=== PATIENT | female | born 1985 | race American Indian/Alaskan Native ===

== ENCOUNTER 2017-06-01 15:34 | Emergency (ER) | payer OTHER ==
[2017-06-01] MEDS ORDERED: TORADOL IM ONE (21:16)
[2017-06-01 21:42] LABS: Basophils # (Auto) 0.1 K/mm3 (0.0-0.1); Basophils % (Auto) 0.4 % (0.0-1.8); Eosinophils # (Auto) 0.1 K/mm3 (0.0-0.4); Eosinophils % (Auto) 0.5 % (0.0-4.3); Hematocrit 41.2 % (30.3-42.9); Lymphocytes # (Auto) 1.9 K/mm3 (1.2-5.4); Lymphocytes % (Auto) 11.2 % (13.4-35.0); Mean Corpuscular HGB Conc 34 % (30-34); Mean Corpuscular Hemoglobin 38 pg (28-32); Mean Corpuscular Volume 113 fl (79-97); Monocytes # (Auto) 0.9 K/mm3 (0.0-0.8); Monocytes % (Auto) 5.7 % (0.0-7.3); Platelet Count 193 K/mm3 (140-440); Red Blood Count 3.65 M/mm3 (3.65-5.03); Red Cell Distribution Width 12.6 % (13.2-15.2)
[2017-06-01 21:47] LABS: Bilirubin,Urine NEG (Negative); Blood,Urine SM (Negative); Color,Urine Amber (Yellow); Nitrite,Urine POS (Negative); Protein,Urine <15 mg/dL mg/dL (Negative); WBC,Urine < 1.0 /HPF (0.0-6.0)
[2017-06-01 22:06] LABS: Alanine Aminotransferase 10 units/L (7-56); Albumin 4.1 g/dL (3.9-5); BUN/Creatinine Ratio 7; Blood Urea Nitrogen 5 mg/dL (7-17); Calcium 8.8 mg/dL (8.4-10.2); Hemolysis Index 11; Lipase 17 units/L (13-60)
[2017-06-02 03:36] VITALS: BP 146/85
== END 2017-06-02 05:01 | disposition left against medical advice (07) ==
LOC: ED 15:34
DX: R10.9 Unspecified abdominal pain (principal); Z53.21 Procedure and treatment not carried out due to patient leaving prior to being seen by health care provider
CPT/HCPCS: 36415; 80053; 81001; 83690; 84703; 85025; 96372; J1885

== ENCOUNTER 2018-05-27 18:19 | Inpatient (IN) | payer BC, OTHER ==
[2018-05-27 18:52] LABS: Basophils % (Auto) 0.3 % (0.0-1.8); Eosinophils # (Auto) 0.1 K/mm3 (0.0-0.4); Hematocrit 36.8 % (30.3-42.9); Hemoglobin 12.7 gm/dl (10.1-14.3); Lymphocytes # (Auto) 2.1 K/mm3 (1.2-5.4); Lymphocytes % (Auto) 17.8 % (13.4-35.0); Mean Corpuscular HGB Conc 35 % (30-34); Mean Corpuscular Volume 116 fl (79-97); Monocytes # (Auto) 0.8 K/mm3 (0.0-0.8); Monocytes % (Auto) 6.6 % (0.0-7.3); Platelet Count 178 K/mm3 (140-440); Red Blood Count 3.16 M/mm3 (3.65-5.03); Red Cell Distribution Width 12.5 % (13.2-15.2)
[2018-05-27 19:00] LABS: Bacteria,Urine 4+ /HPF (Negative); Bilirubin,Urine NEG (Negative); Blood,Urine LG (Negative); Color,Urine Red (Yellow); Mucus,Urine 3+ /HPF; Urobilinogen,Urine < 2.0 mg/dL (<2.0)
--- NOTE | 2018-05-27 19:55 | Emergency Department Report ---
ED HPI - General Chief complaint: Vaginal Bleeding Stated complaint: 4WKS /BLEEDING/STOMACH PAIN Time Seen by Provider: 05/27/18 19:16 Source: patient Mode of arrival: Ambulatory Limitations: No Limitations - History of Present Illness Initial comments: Patient is a 32-year-old emergency room female G3,P1, A1 who presents for vaginal bleeding 1 week bleeding is light using 2 pads daily brownish red abdominal cramping symptoms symptoms are persistent patient has MANAGER DATA follow-up in 1 week if no fevers no chills no nausea and vomiting she started to pass clots today passing to today patient denies vaginal discharge prior to symptoms patient states no concern for std there is no nausea vomiting , symptoms rated at 4/10 relieved by nothing, exacerbated by movement. MD Complaint: abdominal pain (cramping ), vaginal bleeding Onset/Timin -: week(s) Location: abdomen Radiation: suprapubic Severity: moderate Severity scale (0 -10): 4 Quality: cramping Consistency: constant Improves with: none Worsens with: movement Associated symptoms: vaginal bleeding, abdominal pain Vaginal bleeding: light :: Yes Number of weeks : 4 OB History - Current : no complications OB History - Previous Pregnancies: no complications Last menstrual period: 04/22/18 Pre- care: followed by OB - Related Data : 3 Para: 1 Ab: 1 Previous Rx's Medication Instructions Recorded Last Taken Type traMADol [Ultram] 50 mg PO Q6HR PRN #20 tablet 02/20/16 Unknown Rx Allergies Allergy/AdvReac Type Severity Reaction Status Date / Time No Known Allergies Allergy Verified 05/27/18 18:25 ED Review of Systems ROS: Stated complaint: 4WKS /BLEEDING/STOMACH PAIN Other details as noted in HPI Constitutional: denies: chills, fever Eyes: denies: eye pain, eye discharge, vision change ENT: denies: ear pain, throat pain Respiratory: denies: cough, shortness of breath, wheezing Cardiovascular: denies: chest pain, palpitations Endocrine: no symptoms reported Gastrointestinal: abdominal pain. denies: nausea, vomiting, diarrhea, constipation Genitourinary: other (vaginal bleeding ). denies: urgency, dysuria, frequency, hematuria, discharge, abnormal menses, dyspareunia Musculoskeletal: denies: back pain, joint swelling, arthralgia Skin: denies: rash, lesions Neurological: denies: headache, weakness, paresthesias Psychiatric: denies: anxiety, depression Hematological/Lymphatic: denies: easy bleeding, easy bruising ED Past Medical Hx - Past Medical History Previous Medical History?: No - Surgical History Past Surgical History?: No - Social History Smoking Status: Former Smoker Substance Use Type: None - Medications Home Medications: Home Medications Medication Instructions Recorded Confirmed Last Taken Type traMADol [Ultram] 50 mg PO Q6HR PRN #20 tablet 02/20/16 Unknown Rx ED Physical Exam - General Limitations: No Limitations General appearance: alert, in no apparent distress - Head Head exam: Present: atraumatic, normocephalic - Eye Eye exam: Present: normal appearance - ENT ENT exam: Present: mucous membranes moist - Neck Neck exam: Present: normal inspection - Respiratory Respiratory exam: Present: normal lung sounds bilaterally. Absent: respiratory distress - Cardiovascular Cardiovascular Exam: Present: regular rate, normal rhythm. Absent: systolic murmur, diastolic murmur, rubs, gallop - GI/Abdominal GI/Abdominal exam: Present: soft, tenderness (mild superpubic tenderness to deep palpation ), normal bowel sounds. Absent: distended, guarding, rebound, bruit, hernia - Rectal Rectal exam: Present: deferred - External exam: Present: other (defered per patient ) - Extremities Exam Extremities exam: Present: normal inspection - Back Exam Back exam: Present: normal inspection, full ROM. Absent: tenderness, CVA tenderness (R), CVA tenderness (L), muscle spasm, rash noted - Neurological Exam Neurological exam: Present: alert, oriented X3 - Psychiatric Psychiatric exam: Present: normal affect, normal mood - Skin Skin exam: Present: warm, dry, intact, normal color. Absent: rash ED Course Vital Signs 05/27/18 05/28/18 18:25 00:16 Temperature 97.4 F L 97.9 F Pulse Rate 80 129 H Respiratory 18 18 Rate Blood Pressure 143/82 Blood Pressure 135/78 [Left] O2 Sat by Pulse 100 100 Oximetry ED Medical Decision Making - Lab Data Result diagrams: 05/27/18 18:37 Labs 05/27/18 05/27/18 05/27/18 18:37 18:37 18:37 WBC 12.1 H RBC 3.16 L Hgb 12.7 Hct 36.8 MCV 116 H MCH 40 H MCHC 35 H RDW 12.5 L Plt Count 178 Lymph % (Auto) 17.8 [place] % (Auto) 6.6 Eos % (Auto) 1.0 Baso % (Auto) 0.3 Lymph # 2.1 [place] # 0.8 Eos # 0.1 Baso # 0.0 Seg Neutrophils % 74.3 H Seg Neutrophils # 9.0 H HCG, Quant 44329 H Urine Color Urine Turbidity Urine pH Ur Specific [place] Urine Protein Urine Glucose (UA) Urine Ketones Urine Blood Urine Nitrite Urine Bilirubin Urine Urobilinogen Ur Leukocyte Esterase Urine WBC (Auto) Urine RBC (Auto) U Epithel Cells (Auto) Urine Bacteria (Auto) Urine Mucus Blood Type A NEGATIVE Antibody Screen Negative 05/27/18 18:41 WBC RBC Hgb Hct MCV MCH MCHC RDW Plt Count Lymph % (Auto) [place] % (Auto) Eos % (Auto) Baso % (Auto) Lymph # [place] # Eos # Baso # Seg Neutrophils % Seg Neutrophils # HCG, Quant Urine Color Red Urine Turbidity Slightly-cloudy Urine pH 6.0 Ur Specific [place] 1.021 Urine Protein 100 mg/dl Urine Glucose (UA) 50 Urine Ketones 20 Urine Blood Lg Urine Nitrite Neg Urine Bilirubin Neg Urine Urobilinogen < 2.0 Ur Leukocyte Esterase Neg Urine WBC (Auto) 88.0 H Urine RBC (Auto) 156.0 U Epithel Cells (Auto) 67.0 H Urine Bacteria (Auto) 4+ Urine Mucus 3+ Blood Type Antibody Screen - Radiology Data Radiology results: report reviewed, image reviewed FINAL REPORT PROCEDURE: Transvaginal obstetrical ultrasound. TECHNIQUE: Real-time transvaginal sonography of the uterus, placenta, amniotic fluid, adnexa, and fetus was performed with image documentation. Measurements were obtained to determine age/size. M-mode Doppler was used to document heartbeat. CPT 57912 HISTORY: Vaginal bleeding, 4 weeks . COMPARISON: No prior studies are available for comparison. FINDINGS: The uterus appears normal in size and has uniform echogenicity. The endometrial echo complex appears thin and uniform. There is a right sided adnexal mass measuring approximately 5.2 centimeters x 4.7 centimeters in cross-section. This has a central fluid collection surrounded by increased echogenicity. The appearance is very similar to a gestational sac. I do not see a yolk sac or pole. The findings are worrisome for an ectopic . There is some echogenic free fluid in the cul-de-sac. This could represent hemorrhage. Neither ovary is definitely identified. IMPRESSION: Probable right sided ectopic . Possible hemorrhage in the cul-de-sac. Transcribed By: MRM Dictated By: SAMUEL CARLSON MD Electronically Authenticated By: SAMUEL CARLSON MD Signed Date/Time: 05/27/18 2242 - Medical Decision Making 2229: Consulted OBGYN Dr. Go for dx Ectopic advises will see patient at bedside for evaluation and treatment. US: right ectopic , abo negative, pt denies rhogam in 1st two pregnancies, abd pain is 4/10 at this time, improved per patient, discussed tx plan including ,Dx of Ectopic , surgical intervention and admission pt verbalized agreement and understanding of treatment plan. 0012: pt to PACU for Dx Ectopic , Admitting Dr. Go, pt condtion currently stable with nad, pt to or via [facility]HAELA armenta, in possession of all personal belongings. Critical care attestation.: If time is entered above; I have spent that time in minutes in the direct care of this critically ill patient, excluding procedure time. ED Disposition Clinical Impression: Ectopic Qualifiers: Location of ectopic : tubal Intrauterine status: without intrauterine Laterality: right Qualified Code(s): O00.101 - Right tubal without intrauterine Disposition: OP ADMIT IP TO THIS HOSP Is pt being admited?: Yes Does the pt Need Aspirin: No Condition: Stable Instructions: Ectopic (ED) Referrals: FRANTZ GO MD [Staff Physician] - 3-5 Days Time of Disposition: 00:16
[2018-05-27] MEDS ORDERED: XYLOCAINE 1% MPF 5 mL INFILTRATI ONE (19:56)
[2018-05-27] MEDS ORDERED: ROCEPHIN IM ONE (19:56)
[2018-05-27] MEDS ORDERED: TYLENOL PO ONE ×2 (19:56→23:46)
[2018-05-27] MEDS ORDERED: ZOFRAN ODT PO ONE (20:19)
[2018-05-27] MEDS ORDERED: ZOFRAN ODT ONE (20:21)
[2018-05-27] MEDS ORDERED: NACL 0.9% 1000 ML 1,000 ML IV ONE (22:23)
--- NOTE | 2018-05-27 22:37 | Ultrasound Report ---
FINAL REPORT PROCEDURE: Transabdominal obstetrical ultrasound. TECHNIQUE: Real-time transabdominal sonography of the uterus, placenta, amniotic fluid, adnexa, and fetus was performed with image documentation. Measurements were obtained to determine age/size. M-mode Doppler was used to document heartbeat. CPT 44630 HISTORY: Vaginal bleeding, 4 weeks . COMPARISON: No prior studies are available for comparison. FINDINGS: Image quality is limited because the patient's bladder was not full. The uterus measures 8.8 centimet ers by 4.1 centimeters by 4.7 centimeters. The myometrium is grossly normal. There are no uterine mas ses. The endometrial echo complex appears normal. There is no evidence of an intrauterine gestational sac. There is an ovoid fluid collection on the right side of the uterus. This is in the adnexal karrie on. This could represent a gestational sac of an ectopic . Correlation with a quantitative b eta HCG value is recommended. Neither ovary is identified. There is no definite free fluid in the cul -de-sac. IMPRESSION: Possible right-sided ectopic . Transvaginal study recommended.
--- NOTE | 2018-05-27 22:42 | Ultrasound Report ---
FINAL REPORT PROCEDURE: Transvaginal obstetrical ultrasound. TECHNIQUE: Real-time transvaginal sonography of the uterus, placenta, amniotic fluid, adnexa, and fe tus was performed with image documentation. Measurements were obtained to determine age/size. M -mode Doppler was used to document heartbeat. CPT 12738 HISTORY: Vaginal bleeding, 4 weeks . COMPARISON: No prior studies are available for comparison. FINDINGS: The uterus appears normal in size and has uniform echogenicity. The endometrial echo complex appears thin and uniform. There is a right sided adnexal mass measuring approximately 5.2 centimeters x 4.7 c entimeters in cross-section. This has a central fluid collection surrounded by increased echogenicity . The appearance is very similar to a gestational sac. I do not see a yolk sac or pole. The fin dings are worrisome for an ectopic . There is some echogenic free fluid in the cul-de-sac. T his could represent hemorrhage. Neither ovary is definitely identified. IMPRESSION: Probable right sided ectopic . Possible hemorrhage in the cul-de-sac.
[2018-05-27] MEDS ORDERED: TYLENOL ONE (23:47)
[2018-05-27] MEDS ORDERED: XYLOCAINE MPF 2% ONE (23:59)
[2018-05-27] MEDS ORDERED: SUBLIMAZE ONE (23:59)
[2018-05-27] MEDS ORDERED: DECADRON ONE (23:59)
[2018-05-27] MEDS ORDERED: BLOXIVERZ ONE (23:59)
[2018-05-27] MEDS ORDERED: ROBINUL ONE (23:59)
[2018-05-27] MEDS ORDERED: ZEMURON IV ONE (23:59)
[2018-05-28] MEDS ORDERED: DIPRIVAN 10 MG/ML IV ONE
[2018-05-28] MEDS ORDERED: NACL 0.9% 1000 ML 1,000 ML IV ONE (00:03)
[2018-05-28] MEDS ORDERED: MARCAINE-EPI 0.5%-1:200,000 INFILTRATI ONE (00:23)
[2018-05-28] MEDS ORDERED: NACL 0.9% IR ONE ×2 (00:23)
[2018-05-28] MEDS ORDERED: MARCAINE-EPI 0.25%-1:200,000 INFILTRATI ONE (00:30)
[2018-05-28] MEDS ORDERED: VERSED ONE (00:33)
[2018-05-28] MEDS ORDERED: PEPCID IV ONE (00:33)
--- NOTE | 2018-05-28 00:40 | History and Physical Report ---
History of Present Illness Date of examination: 05/28/18 Date of admission: 05/28/18 Chief complaint: Positive test, pelvic pain and spotting. History of present illness: Patient is a 32 year old , LMP 04/30/18, who presented to the ER complaining of having severe pelvic pain for a week which worsened yesterday and vaginal spotting. She went to [facility] and had a positive test. She was sent for HCG and pelvic sonogram which were to be done tomorrow. In the ER, vitals were stable. Serum HCG was 29,051. H/H stable. Pelvic sonogram showed an empty uterus measuring 8-wk size, a right-sided adnexal mass measuring 5.8 cm and some free fluid in the CDS. 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 (Right tubo-ovarian abcess in 06/2017) Family/Genetic History: none Social history: smoking, other (marijuana) Medications and Allergies Allergies Allergy/AdvReac Type Severity Reaction Status Date / Time No Known Allergies Allergy Verified 05/27/18 18:25 Home Medications Medication Instructions Recorded Confirmed Last Taken Type traMADol [Ultram] 50 mg PO Q6HR PRN #20 tablet 02/20/16 Unknown Rx Active Meds: Active Medications Sodium Chloride (Nacl 0.9% 1000 Ml) 1,000 mls @ 100 mls/hr IV BOLUS ONE Stop: 05/28/18 10:02 Last Admin: 05/28/18 00:17 Dose: 100 mls/hr Documented by: - Vital Signs Vital signs: Vital Signs Temp Pulse Resp BP Pulse Ox 97.4 F L 80 18 143/82 100 05/27/18 18:25 05/27/18 18:25 05/27/18 18:25 05/27/18 18:25 05/27/18 18:25 Temp Pulse Resp BP Pulse Ox 97.9 F 129 H 18 135/78 100 05/28/18 00:16 05/28/18 00:16 05/28/18 00:16 05/28/18 00:16 05/28/18 00:16 - Physical Exam Cardiovascular: Normal S1, Normal S2 Lungs: Positive: Clear to auscultation Vulva: both: normal Deep Tendon Reflex Grade: Normal +2 Results Result Diagrams: 05/28/18 Unknown Abnormal lab results 05/27/18 05/27/18 05/27/18 Range/Units 18:37 18:37 18:41 WBC 12.1 H (4.5-11.0) K/mm3 RBC 3.16 L (3.65-5.03) M/mm3 MCV 116 H (79-97) fl MCH 40 H (28-32) pg MCHC 35 H (30-34) % RDW 12.5 L (13.2-15.2) % Seg Neutrophils % 74.3 H (40.0-70.0) % Seg Neutrophils # 9.0 H (1.8-7.7) K/mm3 HCG, Quant 65983 H (0-4) mIU/mL Urine WBC (Auto) 88.0 H (0.0-6.0) /HPF U Epithel Cells (Auto) 67.0 H (0-13.0) /HPF All other labs normal. Assessment and Plan - Patient Problems (1) First trimester Current Visit: Yes Status: Acute (2) Adnexal mass Current Visit: Yes Status: Acute Plan to address problem: Patient was told that she most likely has an ectopic . I offered her a diagnostic laparoscopy. Risks and benefits of the procedure were discussed in detail with her such as infection, bleeding requiring blood transfusion, injury to the bowel, bladder and blood vessels, having a fallopian tube removed, having an ovary removed if the ectopic is of ovarian origin, risks of having the procedure converted to an open laparotomy. She expressed understanding, her questions were answered, she gave her informed consent. Anesthesia has been notified. Keep NPO. IV fluid.
[2018-05-28] MEDS ORDERED: NEO SYNEPHRINE/NS Syringe(OR USE) IV ONE (01:12)
[2018-05-28] MEDS ORDERED: DILAUDID ONE ×2 (01:38→03:31)
[2018-05-28] MEDS ORDERED: SUBLIMAZE ONE (02:03)
[2018-05-28] MEDS ORDERED: NACL 0.9% 500 ML 500 ML IV ONE (02:25)
[2018-05-28 02:44] LABS: Hemoglobin 6.1 gm/dl (10.1-14.3)
[2018-05-28 02:46] LABS: Hematocrit 17.6 % (30.3-42.9)
[2018-05-28] MEDS ORDERED: ZOFRAN IV PRN (03:26)
[2018-05-28] MEDS ORDERED: TYLENOL PO PRN (03:26)
[2018-05-28] MEDS: DILAUDID IV PRN ×3 (03:30→04:10)
[2018-05-28] MEDS ORDERED: LACTATED RINGERS 1,000 ML ONE (03:37)
[2018-05-28] MEDS ORDERED: LACTATED RINGERS 1,000 ML IV SCH (04:00)
[2018-05-28] MEDS ORDERED: ANCEF/NS 1 GM/50 ML 1 GM/50 ML BAG IV SCH (04:00)
--- NOTE | 2018-05-28 04:33 | Operative Report ---
Operative Report Operative Report: Preoperative diagnosis: Ruptured ectopic . Postoperative diagnosis: 1. Ruptured ectopic . 2. Hemoperitoneum. Procedure: 1. Diagnostic laparoscopy converted to exploratory laparotomy. 2. Right salpingiectomy. 3. Evacuation of hemoperitoneum. Surgeon: Dr. Alvarenga Erp Implementation Consultant: none Anesthesia: general EBL: <10 cc Hemoperitoneum: 2000 cc. IVF: RL 1.8 liters Complications: none Specimen: Right fallopian tube with an ectopic . Intraoperative findings: Normal uterus, right tubal ectopic ruptured at the isthmic portion, normal left fallopian tubes and ovaries bilaterally. Procedure details: Risks, benefits, and alternatives of the procedure were discussed in detail with the patient which included but not limited to risk of infection, hemorrhage requiring blood transfusion, injury to the bowel or bladder and blood vessels, having a fallopian tube or ovary removed. The patient expressed understanding, her questions were answered, and she gave informed consent. The patient was taken to the operating room with an IV fluid using Ringer's lactate. In the operating room, she was placed in a dorsal supine position and given general anesthesia. She was then placed on the stirrups in a dorsal lithotomy position. The perineum, vagina, cervix, and abdomen were washed and she was prepared and draped in usual sterile fashion. A bivalve speculum was placed in the vagina and the anterior lip of the cervix was grasped with a single-tooth tenaculum. A HUMI uterine manipulator was advanced into the uterine cavity to provide a means of manipulating the uterus and the procedure. The speculum and tenaculum were then removed. Attention was then turned to the patient's abdomen where a 5 mm skin incision was made in the infraumbilical fold. The Veress needle was introduced into the peritoneal cavity while tenting the abdominal wall. Intraperitoneal placement was confirmed by using a water-filled syringe and by noticing a drop in the intra-abdominal pressure with CO2 gas insufflation. The trocar and sleeves were then advanced without difficulty into the abdomen where intraperitoneal placement was confirmed using laparoscope. Pneumoperitoneum was achieved with 3.5 L of CO2 gas. A 10-mm skin incision was made in the left lower quadrant and a 10-mm trocar and sleeves were then advanced into the abdominal cavity under direct visualization with the laparoscope. A quick survey of the anatomy revealed a large right tubal which was ruptured with active bleeding, normal uterus, left fallopian tube, and ovaries bilaterally. There was large amount of hemoperitoneum which was evacuated. The procedure was converted to open laparotomy due to active bleeding and Ligasure instrument not working. The ports were then opened to release to CO2 gas from the abdomen. The instruments were then removed. The ports were closed with 3.0 vicryl sutures. Steri-Strip and Tegaderm were placed. The HUMI uterine manipulator was then removed from the uterine cavity. A Pfannenstiel skin incision was made in the lower abdomen about 2 cm above the pubic symphysis using the scalpel. This incision was carried down to the underlying fascia using the Bovie. The fascia was opened bilaterally in a curvilinear fashion using the Bovie. 2 straight Kocker clamps were used to grasp the upper edge of the fascia from which the underlying rectus abdominis muscles was dissected off using the Bovie. A similar procedure was done with the lower edge of the fascia to dissect the underlying rectus abdominis muscle. The muscle was bluntly from the midline by pulling. The parietal peritoneum was grasped with 2 hemostat clamps and entered sharply using Metzenbaum scissors. A quick survey of the anatomy revealed the findings mentioned above. The right fallopian tube was grasped with Kina clamps and was suture ligated using 0 vicryl. The right fallopian tube with the ectopic was sent to pathology. More blood was evacuated from the abdominal cavity. Copious irrigation with normal saline was done. After confirming adequate hemostasis, the instruments were removed from the abdominal cavity. The rectus muscle was reapproximated in an interrupted fashion using 0 Vicryl sutures. The fascia was closed in a running fashion using 0 Vicryl sutures. The skin was closed in a subcutaneous fashion using 4 Vicryl on a Jose R needle. Sterile dressing was placed. The counts of laps, needles, sponges, and instruments were correct 2. The patient tolerated the procedure well, she was taken to the recovery room in a stable condition.
[2018-05-28 05:48] LABS: Hematocrit 25.6 % (30.3-42.9); Hemoglobin 8.6 gm/dl (10.1-14.3); Mean Corpuscular HGB Conc 34 % (30-34); Mean Corpuscular Volume 105 fl (79-97); Red Blood Count 2.44 M/mm3 (3.65-5.03); Red Cell Distribution Width 18.6 % (13.2-15.2)
[2018-05-28 05:49] LABS: Platelet Count 83 K/mm3 (140-440)
[2018-05-28 06:29] LABS: Anisocytosis 1+; Band Neutrophils # (Manual) 0.4 K/mm3; Basophils % (Manual) 0 % (0.0-1.8); Burr Cells Rare; Eosinophils % (Manual) 0 % (0.0-4.3); Giant Platelets Few; Large Platelets Few; Macrocytosis 1+; Ovalocytes 1+; Platelet Estimate Appears Decreased; Tear Drop Cells Rare; Total Cells Counted 100
[2018-05-28] MEDS: MORPHINE IV PRN ×2 (09:20→15:04)
[2018-05-28] MEDS ORDERED: MORPHINE IV ONE (16:46)
[2018-05-28 16:52] LABS: Basophils % (Auto) 0.1 % (0.0-1.8); Eosinophils % (Auto) 0.3 % (0.0-4.3); Hematocrit 21.9 % (30.3-42.9); Hemoglobin 7.5 gm/dl (10.1-14.3); Lymphocytes # (Auto) 1.5 K/mm3 (1.2-5.4); Lymphocytes % (Auto) 13.1 % (13.4-35.0); Mean Corpuscular HGB Conc 34 % (30-34); Mean Corpuscular Volume 105 fl (79-97); Monocytes # (Auto) 0.9 K/mm3 (0.0-0.8); Monocytes % (Auto) 8.2 % (0.0-7.3); Red Blood Count 2.09 M/mm3 (3.65-5.03); Red Cell Distribution Width 19.4 % (13.2-15.2)
[2018-05-28] MEDS ORDERED: MORPHINE IV PRN ×2 (17:10→18:00)
[2018-05-28 17:11] LABS: Platelet Count 87 K/mm3 (140-440)
[2018-05-28] MEDS ORDERED: NACL 0.9% 500 ML 500 ML IV NR (17:27)
[2018-05-29 02:15] LABS: Basophils % (Auto) 0.1 % (0.0-1.8); Eosinophils # (Auto) 0.1 K/mm3 (0.0-0.4); Eosinophils % (Auto) 0.6 % (0.0-4.3); Hematocrit 25.2 % (30.3-42.9); Hemoglobin 8.7 gm/dl (10.1-14.3); Lymphocytes # (Auto) 2.3 K/mm3 (1.2-5.4); Lymphocytes % (Auto) 21.8 % (13.4-35.0); Mean Corpuscular HGB Conc 34 % (30-34); Mean Corpuscular Volume 100 fl (79-97); Monocytes # (Auto) 0.8 K/mm3 (0.0-0.8); Monocytes % (Auto) 7.8 % (0.0-7.3); Red Blood Count 2.52 M/mm3 (3.65-5.03)
[2018-05-29 02:17] LABS: Platelet Count 87 K/mm3 (140-440); Red Cell Distribution Width 21.3 % (13.2-15.2)
--- NOTE | 2018-05-29 07:36 | Event Note ---
LATE ENTRY NOTE-- Saw patient day of surgery in the evening her pain was 8/10. She denies N/V and tolerated ice chips. She desired to eat. No passage of flatus or bowel movement. States it is hard to move due to pain. Plan to start clear liquids and morphine IV for pain.
[2018-05-29] MEDS: TORADOL IV PRN ×2 (07:41→20:39)
--- NOTE | 2018-05-29 10:20 | Progress Note ---
Assessment and Plan - Patient Problems (1) Ruptured ectopic Current Visit: Yes Status: Acute Plan to address problem: Continue routine post op care. Advance diet to full liquid today. OOB to ambulate. Mylicon and MOM today. (2) Hemoperitoneum Current Visit: Yes Status: Acute (3) Anemia Current Visit: Yes Status: Acute Plan to address problem: Patient is S/P 3 units PRBCs and 1 FFP. H/H stable at 8.7/25.2, plt 87. Will monitor H/H and plt count today. Subjective - Subjective Date of service: 05/29/18 Principal diagnosis: S/P exp lap with right salpingiectomy for ruptured ectopic. Interval history: Patient is a 32 year old , who is S/P diagnostic laparoscopy converted to exploratory laparotomy with right salpingiectomy for ruptured ectopic , POD#1. She is on morphine for pain control. She says that is not helping her much. No flatus or BM yet. She denies any dizziness. Vitals are stable. Objective - Vital Signs Latest vital signs: Vital Signs Temp Pulse Resp BP BP Pulse Ox 05/29/18 08:29 98.4 F 87 18 136/48 05/29/18 08:11 18 05/29/18 07:41 18 05/29/18 04:46 98.9 F 91 H 18 110/59 99 05/29/18 01:06 98.6 F 86 18 121/63 97 05/29/18 01:00 98.6 F 86 18 121/63 05/28/18 21:35 98.0 F 81 18 106/47 05/28/18 21:05 98.4 F 87 18 131/54 05/28/18 20:35 98.7 F 89 18 114/57 05/28/18 20:05 98.3 F 79 20 108/57 108/57 05/28/18 19:35 98.7 F 93 H 18 117/59 05/28/18 19:20 97.2 F L 98 H 18 97/49 05/28/18 16:09 98.5 F 85 16 112/59 05/28/18 15:04 16 05/28/18 13:37 98.2 F 86 16 160/45 05/28/18 12:50 98.2 F 81 18 108/46 05/28/18 12:30 98.1 F 83 18 108/45 05/28/18 11:15 98.0 F 79 18 107/46 Intake and Output 05/28/18 05/29/18 05/29/18 23:59 07:59 15:59 Intake Total 250 240 600 Output Total 1000 700 Balance -750 -460 600 Intake: Oral 0 600 Intake, Free Water 240 Blood Product 250 Leukoreduced Red Blood 250 Cells Unit [id number] Output: Urine 1000 700 Indwelling Catheter 1000 700 Other: Total, Intake Amount 0 360 Total, Output Amount 1000 700 Voiding Method Indwelling Catheter Indwelling Catheter - Exam Cardiovascular: Present: Normal S1, Normal S2 Lungs: Present: Clear to auscultation Vulva: both: normal Deep Tendon Reflex Grade: Normal +2 - Labs Labs: Abnormal lab results 05/27/18 05/28/18 05/28/18 Range/Units 18:37 16:40 Unknown WBC 11.2 H (4.5-11.0) K/mm3 RBC 2.09 L (3.65-5.03) M/mm3 Hgb 7.5 L 6.1 L (10.1-14.3) gm/dl Hct 21.9 L 17.6 L* (30.3-42.9) % MCV 105 H (79-97) fl MCH 36 H (28-32) pg RDW 19.4 H (13.2-15.2) % Plt Count 87 L (140-440) K/mm3 Lymph % (Auto) 13.1 L (13.4-35.0) % [place] % (Auto) 8.2 H (0.0-7.3) % [place] # 0.9 H (0.0-0.8) K/mm3 Seg Neutrophils % 78.3 H (40.0-70.0) % Seg Neutrophils # 8.8 H (1.8-7.7) K/mm3 Crossmatch See Detail 05/29/18 Range/Units 01:22 WBC (4.5-11.0) K/mm3 RBC 2.52 L (3.65-5.03) M/mm3 Hgb 8.7 L (10.1-14.3) gm/dl Hct 25.2 L D (30.3-42.9) % MCV 100 H (79-97) fl MCH 35 H (28-32) pg RDW 21.3 H (13.2-15.2) % Plt Count 87 L (140-440) K/mm3 Lymph % (Auto) (13.4-35.0) % [place] % (Auto) 7.8 H (0.0-7.3) % [place] # (0.0-0.8) K/mm3 Seg Neutrophils % (40.0-70.0) % Seg Neutrophils # (1.8-7.7) K/mm3 Crossmatch
[2018-05-29] MEDS ORDERED: MYLICON PO PRN (10:30)
--- NOTE | 2018-05-29 10:30 | Progress Note ---
Assessment and Plan - Patient Problems (1) Ruptured ectopic Current Visit: Yes Status: Acute Plan to address problem: Continue routine post op care. Advance diet to full liquid today. OOB to ambulate. Mylicon and MOM today. (2) Hemoperitoneum Current Visit: Yes Status: Acute (3) Anemia Current Visit: Yes Status: Acute Plan to address problem: Patient is S/P 3 units PRBCs and 1 FFP. H/H stable at 8.7/25.2, plt 87. Will monitor H/H and plt count today. Subjective - Subjective Date of service: 05/29/18 Principal diagnosis: S/P exp lap with right salpingiectomy for ruptured ectopic. Interval history: Patient's blood type is A negative. Rhogam 300 mg vial was given in the ER before patient was taken to the OR. Objective - Vital Signs Latest vital signs: Vital Signs Temp Pulse Resp BP BP Pulse Ox 05/29/18 08:29 98.4 F 87 18 136/48 05/29/18 08:11 18 05/29/18 07:41 18 05/29/18 04:46 98.9 F 91 H 18 110/59 99 05/29/18 01:06 98.6 F 86 18 121/63 97 05/29/18 01:00 98.6 F 86 18 121/63 05/28/18 21:35 98.0 F 81 18 106/47 05/28/18 21:05 98.4 F 87 18 131/54 05/28/18 20:35 98.7 F 89 18 114/57 05/28/18 20:05 98.3 F 79 20 108/57 108/57 05/28/18 19:35 98.7 F 93 H 18 117/59 05/28/18 19:20 97.2 F L 98 H 18 97/49 05/28/18 16:09 98.5 F 85 16 112/59 05/28/18 15:04 16 05/28/18 13:37 98.2 F 86 16 160/45 05/28/18 12:50 98.2 F 81 18 108/46 05/28/18 12:30 98.1 F 83 18 108/45 05/28/18 11:15 98.0 F 79 18 107/46 Intake and Output 05/28/18 05/29/18 05/29/18 23:59 07:59 15:59 Intake Total 250 240 600 Output Total 1000 700 Balance -750 -460 600 Intake: Oral 0 600 Intake, Free Water 240 Blood Product 250 Leukoreduced Red Blood 250 Cells Unit [id number] Output: Urine 1000 700 Indwelling Catheter 1000 700 Other: Total, Intake Amount 0 360 Total, Output Amount 1000 700 Voiding Method Indwelling Catheter Indwelling Catheter - Exam Cardiovascular: Present: Normal S1, Normal S2 Lungs: Present: Clear to auscultation Vulva: both: normal Deep Tendon Reflex Grade: Normal +2 - Labs Labs: Abnormal lab results 05/27/18 05/28/18 05/28/18 Range/Units 18:37 16:40 Unknown WBC 11.2 H (4.5-11.0) K/mm3 RBC 2.09 L (3.65-5.03) M/mm3 Hgb 7.5 L 6.1 L (10.1-14.3) gm/dl Hct 21.9 L 17.6 L* (30.3-42.9) % MCV 105 H (79-97) fl MCH 36 H (28-32) pg RDW 19.4 H (13.2-15.2) % Plt Count 87 L (140-440) K/mm3 Lymph % (Auto) 13.1 L (13.4-35.0) % [place] % (Auto) 8.2 H (0.0-7.3) % [place] # 0.9 H (0.0-0.8) K/mm3 Seg Neutrophils % 78.3 H (40.0-70.0) % Seg Neutrophils # 8.8 H (1.8-7.7) K/mm3 Crossmatch See Detail 05/29/18 Range/Units 01:22 WBC (4.5-11.0) K/mm3 RBC 2.52 L (3.65-5.03) M/mm3 Hgb 8.7 L (10.1-14.3) gm/dl Hct 25.2 L D (30.3-42.9) % MCV 100 H (79-97) fl MCH 35 H (28-32) pg RDW 21.3 H (13.2-15.2) % Plt Count 87 L (140-440) K/mm3 Lymph % (Auto) (13.4-35.0) % [place] % (Auto) 7.8 H (0.0-7.3) % [place] # (0.0-0.8) K/mm3 Seg Neutrophils % (40.0-70.0) % Seg Neutrophils # (1.8-7.7) K/mm3 Crossmatch
[2018-05-29] MEDS ORDERED: MILK OF MAGNESIA PO PRN (11:00)
[2018-05-30] MEDS: PERCOCET 5/325 PO PRN ×2 (04:09→12:51)
--- NOTE | 2018-05-30 12:16 | Discharge Summary ---
Providers - Providers Date of Admission: 05/28/18 03:23 Attending physician: FRANTZ GO MD Primary care physician: TAMI GALLARDO Hospitalization Hospital course: Patient underwent diagnostic laparoscopy converted to exploratory laparotomy with Dr. Go. 2L Hemoperitoneum was evacuated. (see op note). She received packed red blood cell transfusion. On POD#2 she was ambulating without difficulty, tolerating PO, she passed flatus and pain was well controlled. She was discharged in stable condition with f/u with Dr Go on Saturday at [facility]. Preoperative diagnosis: Ruptured ectopic . Postoperative diagnosis: 1. Ruptured ectopic . 2. Hemoperitoneum. Procedure: 1. Diagnostic laparoscopy converted to exploratory laparotomy. 2. Right salpingiectomy. 3. Evacuation of hemoperitoneum. Condition at discharge: Stable Disposition: - TO HOME OR SELFCARE - Discharge Diagnoses (1) Ruptured ectopic Status: Acute Plan - Provider Discharge Summary Additional instructions: [] Smoking cessation referral if applicable(refer to patient education folder for contact #) [] Refer to [facility]'s [facility] Booklet Call your doctor immediately for: * Fever > 100.5 * Heavy vaginal bleeding ( >1 pad per hour) * Severe persistent headache * Shortness of breath * Reddened, hot, painful area to leg or breast * Drainage or odor from incision. * Keep incision clean and dry at all times and follow doctor's instructions regarding bathing/showering - Follow up plan Follow up: FRANTZ GO MD [Staff Physician] - 3-5 Days
[2018-05-30 17:49] VITALS: BP 112/63
== END 2018-05-30 17:15 | disposition home or self-care (01) | DRG 817 ==
LOC: ED 18:19 → OB 05-28 03:23
PROVIDERS: ADMIT Obstetrics & Gynecology; ATTEND Obstetrics & Gynecology
PROC: 0UT50ZZ Resection of Right Fallopian Tube, Open Approach (ICD-10-PCS; principal; 2018-05-28)
PROC: 10T20ZZ Resection of Products of Conception, Ectopic, Open Approach (ICD-10-PCS; 2018-05-28)
PROC: 0UJ84ZZ Inspection of Fallopian Tube, Percutaneous Endoscopic Approach (ICD-10-PCS; 2018-05-28)
PROC: 0D9W4ZZ Drainage of Peritoneum, Percutaneous Endoscopic Approach (ICD-10-PCS; 2018-05-28)
DX: O00.101 Right tubal pregnancy without intrauterine pregnancy (principal); K66.1 Hemoperitoneum; O99.321 Drug use complicating pregnancy, first trimester; D62 Acute posthemorrhagic anemia; F12.90 Cannabis use, unspecified, uncomplicated; D64.9 Anemia, unspecified; O99.011 Anemia complicating pregnancy, first trimester; O26.891 Other specified pregnancy related conditions, first trimester; Z87.891 Personal history of nicotine dependence
CPT/HCPCS: 36415; 76801; 76817; 81001; 84702; 85007; 85014; 85018; 85025; 86850; 86900; 86901; 86920; 88305; G0378; A4217; C1765; J0690; J0696; J1100; J1170; J1885; J2250; J2270; J2370; J2704; J2710; J3010; J7030; J7040; J7120; P9016; P9017; Q0162

== ENCOUNTER 2018-06-20 08:23 | Emergency (ER) | payer BC ==
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
[2018-06-20] MEDS ORDERED: FLEXERIL PO ONE (09:36)
[2018-06-20] MEDS ORDERED: IBUPROFEN PO ONE (09:36)
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
[2018-06-20] MEDS ORDERED: DELTASONE PO NR (10:00)
[2018-06-20 10:18] VITALS: BP 115/64
== END 2018-06-20 10:20 | disposition home or self-care (01) ==
LOC: ED 08:23
DX: S00.03XA Contusion of scalp, initial encounter (principal); R10.9 Unspecified abdominal pain; R07.89 Other chest pain; F17.200 Nicotine dependence, unspecified, uncomplicated; V49.49XA Driver injured in collision with other motor vehicles in traffic accident, initial encounter; Y93.89 Activity, other specified; Y92.410 Unspecified street and highway as the place of occurrence of the external cause; Y99.8 Other external cause status
CPT/HCPCS: 70450; 72125; 99283; J7512